=== PATIENT | female | born 1965 | race Caucasian/White ===

== ENCOUNTER → 2021-08-07 03:16 | Outpatient (CLI) | payer OTHER, SELFPAY ==
[2021-08-07 20:20] LABS: SARS-CoV-2 RNA PCR Negative
== END ==
PROVIDERS: PCP Internal Medicine; Visit Provider Otolaryngology
DX: Z01.812 Encounter for preprocedural laboratory examination (principal); Z20.822 Contact with and (suspected) exposure to COVID-19
CPT/HCPCS: C9803; U0003; U0005

== ENCOUNTER 2021-08-10 01:14 | Day surgery (SDC) | payer OTHER, SELFPAY ==
[2021-08-02 16:53] VITALS: BMI 32.8
--- NOTE | 2021-08-08 06:18 | PM.HPGS ---
History of Present Illness History of Present Illness Consent: Risks, benefits, and alternatives have been discussed and questions answered. Patient agrees to proceed with procedure. Chief complaint: left postauricular lesion Narrative: Susi Og is a 55 year old female with a lesion left postauricular Review of Systems Review of Systems: All systems reviewed & are unremarkable except as noted in HPI and below PMFSH Family History Family History Father Diabetes mellitus Hypertension Mother Cancer Cerebrovascular accident Heart disease Sibling Cancer Diabetes mellitus Heart disease Sibling Cancer Heart disease Other Hypertension Cerebrovascular accident Social History Social History Years smoked: 2 Smoking status: Former smoker Tobacco type: cigarettes Second hand tobacco smoke exposure: Yes Smoking end date: 05/06/21 Additional smoking assessment comments: quit cold turkey Alcohol intake: current Alcohol use details: very rarely Substance use: never Substance use type: does not use Spiritual care concerns: No Meds Home Medications and Allergies Home Medications Medication Instructions Recorded Confirmed Type albuterol sulfate 90 mcg/actuation 1 puff INHALATION Q4H PRN 07/17/21 08/02/21 History aerosol inhaler biotin 800 mcg tablet 800 mcg PO DAILY 07/17/21 08/02/21 History cetirizine 10 mg tablet 10 mg PO DAILY 07/17/21 08/02/21 History furosemide 40 mg tablet 40 mg PO QAM 07/17/21 08/02/21 History meclizine 25 mg tablet 25 mg PO TID PRN 07/17/21 08/02/21 History mometasone-formoterol HFA 200 2 puff INHALATION Q12H 07/17/21 08/02/21 History mcg-5 mcg/actuation aerosol inhaler montelukast 10 mg tablet 10 mg PO DAILY 07/17/21 08/02/21 History multivitamin 1 tablet PO DAILY 07/17/21 08/02/21 History omega-3 fatty acids 1,000 mg 1,000 mg PO DAILY 07/17/21 08/02/21 History capsule potassium chloride 10 mEq 10 meq PO DAILY 07/17/21 08/02/21 History capsule,extended release tizanidine 4 mg capsule 4 mg PO TID PRN 07/17/21 08/02/21 History cephalexin 500 mg PO QID 08/02/21 08/02/21 History Allergies Allergy/AdvReac Type Severity Reaction Status Date / Time aspirin Allergy Severe Anaphylactic Verified 08/02/21 16:52 Shock Penicillins Allergy Intermediate Hives Verified 08/02/21 16:52 tomato Allergy Intermediate Swelling Verified 08/02/21 16:52 of Lip/Tongue/Throat ibuprofen Allergy Mild Other Verified 08/02/21 16:52 phenobarbital Allergy Mild Dizziness Verified 08/02/21 16:52 Sulfa (Sulfonamide Allergy Mild Rash Verified 08/02/21 16:52 Antibiotics) Honey Bee Allergy Severe Anaphylactic Uncoded 08/02/21 16:52 Shock Exam Narrative: chest clear all murmurs abdomen soft extremities negative a postauricular region approximately 2 cm Assessment and Plan Additional Plan plan is to excise the postauricular lesion
[2021-08-10] VITALS (9 sets, daily range): BP systolic 104–146; BP diastolic 56–90; PULSE 61–70; RESP 12–18; TEMP 36.2–36.5; O2SAT 94–99; BMI 33.0
--- NOTE | 2021-08-10 06:09 | WPDHPUPDATE1 ---
History and Physical Update Update Date/Time: 08/10/21 06:09 History and Physical has been reviewed, including an updated exam of the patient. There are NO changes in the patient's condition. Risks, benefits, and alternatives have been discussed and questions answered. Patient agrees to proceed with procedure.
--- NOTE | 2021-08-10 07:11 | WPDANESEPPF ---
Anes - Initial Pre Proc Eval Procedure: Operation Date: 08/10/21 08:00 Proposed Procedures p Excision of Lesion Postauricular Left Ear - Boone Anna MD Date/Time: 08/10/21 07:11 Surgeon: Boone Anna MD Pre Op Diagnosis: left postauricular lesion Patient Data Age: 55 Gender: F Height: 1.6 m Weight: 84.5 kg Last Vital Signs Temp 36.5 C 08/10/21 06:23 Pulse 70 08/10/21 06:23 Resp 18 08/10/21 06:23 BP 146/84 H 08/10/21 06:23 Pulse Ox 99 08/10/21 06:23 Allergies Allergy/AdvReac Type Severity Reaction Status Date / Time aspirin Allergy Severe Anaphylactic Verified 08/10/21 06:14 Shock Penicillins Allergy Intermediate Hives Verified 08/10/21 06:14 tomato Allergy Intermediate Swelling Verified 08/10/21 06:14 of Lip/Tongue/Throat ibuprofen Allergy Mild Other Verified 08/10/21 06:14 phenobarbital Allergy Mild Dizziness Verified 08/10/21 06:14 Sulfa (Sulfonamide Allergy Mild Rash Verified 08/10/21 06:14 Antibiotics) Honey Bee Allergy Severe Anaphylactic Uncoded 08/10/21 06:14 Shock Home Medications Medication Instructions Recorded Confirmed Type albuterol sulfate 90 mcg/actuation 1 puff INHALATION Q4H PRN 07/17/21 08/02/21 History aerosol inhaler biotin 800 mcg tablet 800 mcg PO DAILY 07/17/21 08/02/21 History cetirizine 10 mg tablet 10 mg PO DAILY 07/17/21 08/02/21 History furosemide 40 mg tablet 40 mg PO QAM 07/17/21 08/02/21 History meclizine 25 mg tablet 25 mg PO TID PRN 07/17/21 08/02/21 History mometasone-formoterol HFA 200 2 puff INHALATION Q12H 07/17/21 08/02/21 History mcg-5 mcg/actuation aerosol inhaler montelukast 10 mg tablet 10 mg PO DAILY 07/17/21 08/02/21 History multivitamin 1 tablet PO DAILY 07/17/21 08/02/21 History omega-3 fatty acids 1,000 mg 1,000 mg PO DAILY 07/17/21 08/02/21 History capsule potassium chloride 10 mEq 10 meq PO DAILY 07/17/21 08/02/21 History capsule,extended release tizanidine 4 mg capsule 4 mg PO TID PRN 07/17/21 08/02/21 History cephalexin 500 mg PO QID 08/02/21 08/02/21 History Patient hx anesthesia problems: none Family hx anesthesia problems: post op nausea/vomiting Results Review: All pre-operative results and documents have been reviewed as part of the pre-operative evaluation. [facility] Past Medical History Medical History Asthma CHF (congestive heart failure) Family History Family History Father Diabetes mellitus Hypertension Mother Cancer Cerebrovascular accident Heart disease Sibling Cancer Diabetes mellitus Heart disease Sibling Cancer Heart disease Other Hypertension Cerebrovascular accident Social History Social History Years smoked: 2 Smoking status: Former smoker Tobacco type: cigarettes Second hand tobacco smoke exposure: Yes Smoking end date: 05/06/21 Additional smoking assessment comments: quit cold turkey Alcohol intake: current Alcohol use details: very rarely Substance use: never Substance use type: does not use Living arrangements: alone Spiritual care concerns: No Anes - Eval Final PreProcedure Day of Procedure 08/10/21 07:11 Patient weight: obese Heart: regular rate and rhythm Lungs: decreased breath sounds Airway: Mallampati scale class III Neurological: lethargic Last oral intake: >/= 8 hours ASA classification: III Emergent: no Anesthetic plan: proceed Anesthesia type and monitoring: general LMA and standard monitoring Results Review: All pre-operative results and documents have been reviewed as part of the pre-operative evaluation. Informed Consent: The patient's anesthetic plan and its attendant risks and benefits were discussed with the patient/family/POA. Questions were solicited and answers provided to the satisfaction of the jaqueline
[2021-08-10] MEDS: LACTATED RINGERS 1,000 ML 30 ML IV CONT (07:15)
[2021-08-10] MEDS: LIDO 1%/EPINEPHRINE 1:100,000 50 ML VIAL INFILTRATE (08:25)
--- NOTE | 2021-08-10 08:33 | W.PM.PROC2 ---
Procedure Note - Detailed Date of Procedure 08/10/21 Pre-op Diagnosis left postauricular lesion Post-op Diagnosis same Procedure Performed Excision left postauricular lesion Surgeon Boone Anna MD Description of Procedure Patient was prepped draped in usual fashion general anesthesia the region behind the left ear was the cleaned with Betadine elliptical incision made around a elevated lesion dissection carried down to the muscle layer hemostasis with electrocautery and closed in layers of 4-0 Monocryl
--- NOTE | 2021-08-10 10:16 | SUR.PHASEII ---
Patient meets anesthesia criteria for discharge. Awaiting pickup from [facility].
== END 2021-08-10 11:12 | disposition home or self-care (01) ==
PROVIDERS: PCP Internal Medicine; Visit Provider Otolaryngology
PROC: (CPT 11442; principal; 2021-08-10 08:00)
DX: L90.5 Scar conditions and fibrosis of skin (principal); J45.909 Unspecified asthma, uncomplicated; I50.9 Heart failure, unspecified; E66.9 Obesity, unspecified; Z68.33 Body mass index [BMI] 33.0-33.9, adult; Z87.891 Personal history of nicotine dependence; Z79.51 Long term (current) use of inhaled steroids
CPT/HCPCS: 11442; 12051; 88305; A9270; J1100; J2250; J2405; J2704; J3010; J7120